=== PATIENT | male | born 1955 | race Caucasian/White ===

== ENCOUNTER 2017-04-02 10:31 | Day surgery (SDC) | payer BC ==
--- NOTE | 2017-04-02 06:57 | History and Physical Report ---
DATE: 04/02/2017. CHIEF COMPLAINT AND HISTORY OF CHIEF COMPLAINT: This patient presents with a history of intractable lumbar radiculitis which is a postlaminectomy syndrome. Due to the failure of all therapies, a spinal cord stimulator trial was conducted on March 13, 2017, with 75 to 90 percent pain control. Due to the failure of all therapies and the success of the stimulator trial, the patient presents today for implantation of a permanent system. PAST MEDICAL HISTORY: Hypertension, chronic pancreatitis. PAST SURGICAL HISTORY: Lumbar spinal surgery, gallbladder surgery, bowel surgery, appendectomy. EMPLOYMENT STATUS: Retired. MEDICATIONS ON ADMISSION: To be provided. ALLERGIES: None. SOCIAL HISTORY: Caffeine. FAMILY HISTORY: Noncontributory. REVIEW OF SYSTEMS: The patient seems appropriate and in no acute distress. The remainder of the systems review is noncontributory. PHYSICAL EXAMINATION: General: Height and weight are not known. Vital Signs: Unavailable. HEENT: Within normal limits. Lungs: Clear. Heart: Regular rate and rhythm. Abdomen: Nontender. Musculoskeletal: Examination of the musculoskeletal system shows diffuse tenderness throughout the lumbar spine. Range of motion does produce pain into the extremities. Ambulation: No assistive device utilized. Neurologic: Cranial nerves are intact. IMPRESSION: 1. POSTLUMBAR LAMINECTOMY SYNDROME, ICD-10 CODE M96.1. 2. LUMBAR RADICULITIS, ICD-10 CODE M54.16 AND M54.17. PLAN: The patient is here after the failure of all therapies and the success of the trial for a spinal cord stimulator implant. The potential risks, side effects, and complications have all been carefully reviewed and discussed including dural puncture, spinal headache, nerve root injury, and spinal cord injury. The patient understands and has consented. The procedure will be considered outpatient, although an overnight stay will be evaluated. GARCÍA NEGRO D.O. Date & Time JOB NUMBER: [id number] cc: Rigoberto Martinez
[~2017-04-02 10:31] MED LIST: ACETAMINOPHEN 1,000 MG/100 ML BTL IV ONE; CEFAZOLIN 2 Gram 2 GM/50 ML BAG IVPB ONE; FAMOTIDINE 20MG TABLET PO ONE; MECLIZINE 25 MG TABLET PO ONE; METOCLOPRAMIDE 10 MG TABLET PO ONE
[2017-04-02] MEDS ORDERED: TEMAZEPAM 15 MG CAPSULE PO PRN ×2 (15:34)
[2017-04-02] MEDS ORDERED: HYDROMORPHONE HCL 2 MG/ML VIAL IM PRN (15:34)
[2017-04-02] MEDS ORDERED: HYDROCODONE/APAP 7.5/325MG TABLET PO PRN ×2 (15:34)
[2017-04-02] MEDS ORDERED: METOCLOPRAMIDE 10 MG TABLET PO PRN (15:34)
[2017-04-02] MEDS ORDERED: OXYCODONE/APAP 10MG-325MG TABLET PO PRN ×2 (15:34)
[2017-04-02] MEDS ORDERED: DIPHENHYDRAMINE HCL 25 MG CAPSULE PO PRN ×2 (15:34)
[2017-04-02] MEDS ORDERED: AL HYDROX/MAG HYDROX 30ML UD PO PRN (15:34)
[2017-04-02] MEDS ORDERED: DIPHENHYDRAMINE HCL IV 50 MG/ML VIAL IVP PRN ×2 (15:34)
[2017-04-02] MEDS ORDERED: SENNOSIDES/DOCUSATE SODIUM UD CAPSULE PO PRN ×2 (15:34)
[2017-04-02] MEDS ORDERED: ACETAMINOPHEN 325 MG TAB PO PRN ×2 (15:34)
[2017-04-02] MEDS ORDERED: HYDROMORPHONE HCL 1 MG/ML CPJ IM PRN (15:34)
[2017-04-02] MEDS ORDERED: METOCLOPRAMIDE HCL 10 MG/2 ML VIAL IVP PRN (15:34)
[2017-04-02] MEDS ORDERED: OXYCODONE SR 20 MG TAB.ER.12H PO ONE (16:00)
[2017-04-02] MEDS ORDERED: PROPOFOL 10 MG/ML VIAL IV ONE (16:02)
[2017-04-02] MEDS ORDERED: *PACU ONLY* KETAMINE HCL 10 MG/ML (20ML) VIAL IV ONE (16:02)
[2017-04-02] MEDS ORDERED: FENTANYL PF 100MCG/2ML VIAL IV ONE (16:02)
[2017-04-02] MEDS ORDERED: MIDAZOLAM HCL 2MG/2ML VIAL IV ONE (16:02)
[2017-04-02] MEDS ORDERED: LIDOCAINE 2% MDV (20MG/ML) 20ML VIAL IV ONE (16:02)
[2017-04-02] MEDS ORDERED: CEFAZOLIN 1G VIAL IM ONE (16:26)
[2017-04-02] MEDS ORDERED: LIDOCAINE 1% W/EPI 1:200,000 MPF 30ML SQ ONE (16:26)
[2017-04-02] MEDS ORDERED: BUPIVACAINE 0.5% W/EPI MPF 30 ML VIAL IVP ONE (16:26)
--- NOTE | 2017-04-02 20:38 | Operative Note - [place]ro ---
DATE OF SURGERY: 04/02/17 PREOPERATIVE DIAGNOSES: 1. RETRACTABLE LUMBAR RADICULITIS, ICD-10 CODE = M54.16 AND M54.17. 2. POST LAMINECTOMY SYNDROME, ICD-10 CODE = M96.1. OPERATION: 1. FLUOROSCOPIC-GUIDED LEFT EPIDURAL ACCESS T12-L1 WITH EPIMED CURVED ACCESS NEEDLE, PLACEMENT OF SPINAL CORD STIMULATOR LEAD 1, A [employer] 16 WITH 6 ELECTRODES POSITIONED LEFT T7. 2. COMPLEX PROGRAMMING LEAD 1, OVER 20 MINUTES. 3. FLUOROSCOPIC-GUIDED EPIDURAL ACCESS RIGHT T11-12 WITH CURVED ACCESS EPIMED, PLACEMENT OF SPINAL CORD STIMULATOR LEAD 2, A [employer] 16 WITH 6 ELECTRODES POSITIONED RIGHT T7. 4. COMPLEX PROGRAMMING LEAD 2, OVER 20 MINUTES. 5. INCISION, SUBCUTANEOUS DISSECTION AND ANCHORING LEAD 1 AND LEAD 2 TO SKIN USING A [employer] LOCKING ANCHOR AND NONABSORBABLE SUTURE. 6. INCISION, SUBCUTANEOUS DISSECTION AND TUNNELING OF LEADS INTO LEFT POSTERIOR SUPERIOR GLUTEAL MARGIN, EACH LEAD INTERFACED WITH BIFURCATING EXTENSION. EACH BIFURCATING EXTENSION INTERFACED TO GENERATOR. 7. INCISION, SUBCUTANEOUS DISSECTION AND FORMING A LEFT SUBCUTANEOUS POUCH WITH PLACEMENT OF GENERATOR. 8. PLACEMENT OF GENERATOR POUCH SECURING TO POSTERIOR FASCIA WITH NONABSORBABLE SUTURE, PLACEMENT OF LEADS INTO POUCH, CLOSURE OF INCISIONS WITH VICRYL FOR FASCIA AND RUNNING SUBCUTICULAR VICRYL FOR SKIN WITH DERMABOND CLOSURE. 9. COMPLEX PROGRAMMING OF INTERNAL GENERATOR, HOME USE, TWO STIMULATORS IN RECOVERY ROOM, 20 MINUTES. SURGEON: GARCÍA NEGRO D.O. ANESTHESIA: LOCAL SEDATION. ANESTHESIA PROVIDER: MATILDE TRIPP CRNA INDICATIONS: This patient presents with a history of intractable lumbar radiculitis. A spinal cord stimulator trial was conducted with 75-90% pain control. Due to the failure of all therapy, he is here for implantation of a permanent system. PROCEDURE: Intravenous line, vital sign monitoring, IV sedation by Anesthesia. Patient positioned prone, sterile prep, sterile technique. Under imaging, the epidural interspace on the left at T11-12 and 12-1 were both infiltrated using two separate curved access Epimed needles with [id number] in space accessed. At 12-1, spinal cord stimulator lead 1, a [employer]ion 16 with 6 electrodes was positioned left at T7 with the epidural access of 11- 12 in similar technique, spinal cord stimulator lead 2, [employer] 16 with 6 electrodes was positioned right at T7. Complex programming of lead 1, over 20 minutes followed complex programming of lead 2, over 20 minutes, ultimately resulting in patterns of stimulation across the back and into the legs. Patient indicating we were in all the areas. He was given the option to implant the system and continue to program or remove the system and he opted the implant the system. Questions were repeated with the same response. The skin above and below the needle was infiltrated and an incision made and subcutaneous dissection was conducted to the supraspinous fascia. Each lead was then anchored to the supraspinous fascia with a [employer] [place] and nonabsorbable suture. At the left posterior gluteal margin, a site picked by the patient for the generator, skin was infiltrated and an incision made and subcutaneous dissection was conducted to form a pouch of suitable size and depth for the generator. A tunneling tool was used to carry the leads into the pouch and then each lead interfaced with a bifurcating extension and each bifurcating extension interfaced with the generator. The generator was then placed into the pouch and secured to the fascia with nonabsorbable suture. Each lead was coiled, placed into its own pouch, and then each pouch was closed a nonabsorbable suture as fascial and subcuticular closure. A Dermabond closure was then used to approximate the edges of both wounds. He was transported to the Recovery Room stable showing no side-effects from the procedure or the sedation. When fully awake and alert, complex programming of the internal generator was then performed for over 20 minutes reestablishing stimulation of pain control to all the appropriate areas. He was instructed on the use of the system, provided information for error messaging, and then prepared for discharge. DISCHARGE INSTRUCTIONS: 1. THE SITES ARE TO REMAIN CLEAN AND DRY. NO SHOWING OR BATHING IN ANY WAY THAT WOUND DISRUPT DRESSINGS. IF IT HAPPENS, CONTACT THE CLINIC. 2. STANDARD MEDICATIONS RESUMED INCLUDING THE ANTIBIOTIC LEVAQUIN. IF HE DOESN T TOLERATE IT, HE SHOULD NOTIFY THE CLINIC FOR SUBSTITUTION. 3. OFFICE WILL CONTACT THE PATIENT IN THE NEXT 2 TO 3 DAYS TO SET OF THE APPOINTMENT FOR SITE CHECK IN 5 TO 7 DAYS. UNTIL THEN HE IS TO KEEP HIS ACTIVITIES LOW, LIMITING BEND, LIFT, PUSH, PULL AND NO DRIVING. HE MAY SIT A PASSENGER BUT NOT DRIVE. ALL OTHER INSTRUCTIONS PROVIDED, NUMBERS TO CONTACT IF PROBLEMS GIVEN. HE WILL BE EVALUATED IN THE OFFICE. cc: Dr. Ludwig JOB NUMBER: [id number] [facility]
[2017-04-02] MEDS ORDERED: CEFAZOLIN 2 Gram 2 GM/50 ML BAG IVPB SCH (21:00)
[2017-04-02] MEDS ORDERED: 0.9 % SODIUM CHLORIDE 10ML SYR IVP SCH (22:00)
[2017-04-02] MEDS ORDERED: ZOLPIDEM TARTRATE 5 MG TABLET PO SCH (22:00)
[2017-04-02] MEDS ORDERED: OXYCODONE SR 20 MG TAB.ER.12H PO SCH (22:00)
--- NOTE | 2017-04-03 13:39 | RADIOLOGY REPORT ---
EXAM: LUMBAR SPINE, TWO VIEWS HISTORY: PAIN STIMULATOR IMPLANT. TECHNIQUE: Two views of the lumbar spine were obtained. Comparison: Fluoroscopic spot images 04/02/17. FINDINGS: Stimulator leads overlie the thoracic spine projecting cephalad with the tip at approximately the level of the aortic arch. IMPRESSION: STIMULATOR LEADS OVERLIE THE UPPER THORACIC SPINE ABOVE. JOB NUMBER: [id number] MTDD
== END 2017-04-02 17:00 | disposition home or self-care (01) ==
LOC: SUR 10:31 → MEDSURG 16:08 → SUR 17:00
PROVIDERS: ATTEND Pain Medicine Interventional Pain Medicine
DX: M54.16 Radiculopathy, lumbar region (principal); M54.17 Radiculopathy, lumbosacral region; M96.1 Postlaminectomy syndrome, not elsewhere classified; I10 Essential (primary) hypertension; E78.00 Pure hypercholesterolemia, unspecified
CPT/HCPCS: 63685; 63650 ×2; 00300; 95972; 72020; J3490; J3010; J0690